=== PATIENT | female | born 1960 | race Caucasian/White ===

== ENCOUNTER → 2019-11-12 11:33 | Outpatient (BNVA) | payer MEDICARE, MEDICAID, SELFPAY | PROVIDERS: PCP Nurse Practitioner Family; Referring Provider Nurse Practitioner Family; Visit Provider Surgery | DX: Z76.89 Persons encountering health services in other specified circumstances (principal) | CPT/HCPCS: 99214 ==

== ENCOUNTER → 2020-01-21 08:27 | Outpatient (BNVA) | payer MEDICARE, MEDICAID, SELFPAY | PROVIDERS: PCP Nurse Practitioner Family; Visit Provider Surgery | DX: E66.3 Overweight (principal); Z68.27 Body mass index [BMI] 27.0-27.9, adult; Z71.3 Dietary counseling and surveillance | CPT/HCPCS: Q3014 ==

== ENCOUNTER 2020-01-26 10:24 | Outpatient (REF) | payer MEDICARE, MEDICAID, SELFPAY ==
[2020-01-26 10:56] LABS: MANUAL DIFF FLAG NO
[2020-01-26 10:57] LABS: Basophils Percent Auto 0.7 % (0-2); Eosinophils Absolute Auto 0.1 X10*3/uL (0.0-0.4); Eosinophils Percent Auto 1.8 % (0-4); Hematocrit 37.7 % (37-47); Hemoglobin 11.8 g/dl (12.0-16.0); Imm Gran Abs Auto 0.01 X10*3/uL (0.00-0.03); Imm Gran Pct Auto 0.2 % (0.0-0.4); Lymphocytes Absolute Auto 1.6 X10*3/uL (1.2-4.9); Lymphocytes Percent Auto 27.8 % (20-40); Mean Corpuscular HGB Conc 31.3 g/dl (31.0-35.0); Mean Corpuscular Hemoglobin 26.2 pg (27.0-33.0); Mean Corpuscular Volume 83.8 fL (80-98); Mean Platelet Volume 11.1 fL (9.4-12.3); Monocytes Absolute Auto 0.5 X10*3/uL (0.1-1.2); Monocytes Percent Auto 8.6 % (2-11); Neutrophils Absolute Auto 3.4 X10*3/uL (2.0-8.3); Neutrophils Percent Auto 60.9 % (45-73); Platelet Count 207 X10*3/uL (160-400); Red Cell Distribution Width 14.2 % (11.0-16.0); White Blood Count 5.6 X10*3/uL (4.8-10.8)
[2020-01-26 11:17] LABS: Estimated Average Glucose 108 mg/dL; Hemoglobin A1c % 5.4 %
[2020-01-26 11:29] LABS: Alanine Aminotransferase 13 U/L (0-31); Albumin Level 3.9 g/dL (3.5-5.0); Alkaline Phosphatase 77 U/L (39-117); Anion Gap 9 (12-20); Aspartate Amino Transferase 17 U/L (5-31); Bilirubin Total 0.4 mg/dL (0.0-1.0); Blood Urea Nitrogen 19 mg/dL (9-16); Calcium 9.4 mg/dL (8.4-10.2); Carbon Dioxide 33 mmol/L (22-29); Chloride 105 mmol/L (96-108); Cholesterol 197 mg/dL; Estimated Glomerular Filt Rate > 60; Glucose Random 90 mg/dL (60-115); HDL Cholesterol 66 mg/dL; LDL Cholesterol Calculated 114 mg/dl; Potassium 3.8 mmol/l (3.3-5.1); Sodium 143 mmol/L (135-145); Total Protein 6.3 g/dL (6.5-8.0); Triglycerides 87 mg/dL
[2020-01-26 11:39] LABS: Vitamin D 25-OH Total 28.1 ng/mL (>30)
[2020-01-28 09:16] LABS: Folate 10.5 ng/mL (> or = 4.0); Vitamin B12 662 pg/mL (200-900)
[2020-01-28 20:17] LABS: Insulin Level Total 4.1 uIU/mL
[2020-01-29 02:52] LABS: Zinc 77 mcg/dL (60-130)
[2020-01-29 12:07] LABS: Calcium (PTHI) 9.5 mg/dL (8.6-10.4); PTHI 69 pg/mL (14-64)
[2020-01-31 10:57] LABS: Vitamin B1 17 nmol/L (8-30)
[2020-01-31 15:39] LABS: Vitamin A 37 mcg/dL (38-98)
== END 2020-01-26 10:25 | disposition home or self-care (01) ==
LOC: HO.LAB 10:24
PROVIDERS: PCP Nurse Practitioner Family; Visit Provider Surgery
DX: K90.9 Intestinal malabsorption, unspecified (principal); E66.3 Overweight
CPT/HCPCS: 36415; 80053; 80061; 82306; 82607; 82746; 83036; 83525; 83970; 84425; 84590; 84630; 85025; 86140

== ENCOUNTER → 2020-02-25 08:10 | Outpatient (BNVA) | payer MEDICARE, MEDICAID, SELFPAY | PROVIDERS: PCP Nurse Practitioner Family; Visit Provider Physician Assistant | DX: K91.2 Postsurgical malabsorption, not elsewhere classified (principal); Z90.3 Acquired absence of stomach [part of] | CPT/HCPCS: Q3014 ==

== ENCOUNTER → 2020-03-03 08:15 | Outpatient (BNVA) | payer MEDICARE, MEDICAID, SELFPAY | PROVIDERS: PCP Nurse Practitioner Family; Visit Provider Dietitian, Registered ==

== ENCOUNTER → 2020-05-05 08:11 | Outpatient (BNVA) | payer MEDICARE, MEDICAID, SELFPAY | PROVIDERS: PCP Nurse Practitioner Family; Visit Provider Physician Assistant | DX: E66.3 Overweight (principal); K91.2 Postsurgical malabsorption, not elsewhere classified; Z90.3 Acquired absence of stomach [part of]; Z98.0 Intestinal bypass and anastomosis status | CPT/HCPCS: Q3014 ==

== ENCOUNTER → 2020-05-12 08:10 | Outpatient (BNVA) | payer MEDICARE, MEDICAID, SELFPAY | PROVIDERS: PCP Nurse Practitioner Family; Visit Provider Dietitian, Registered | DX: E66.3 Overweight (principal) | CPT/HCPCS: 97803 ==

== ENCOUNTER 2023-06-22 13:05 | Outpatient (REF) | payer OTHER, SELFPAY ==
[2023-06-22 16:12] LABS: MANUAL DIFF FLAG NO
[2023-06-22 16:18] LABS: Eosinophils Percent Auto 1.7 % (0-4); Hematocrit 39.4 % (37.0-47.0); Hemoglobin 12.8 g/dl (12.0-16.0); Imm Gran Pct Auto 0.3 % (0.0-0.4); Lymphocytes Percent Auto 25.5 % (20-40); Mean Corpuscular HGB Conc 32.5 g/dl (31.0-35.0); Mean Corpuscular Hemoglobin 30.5 pg (27.0-33.0); Mean Corpuscular Volume 93.8 fL (80.0-98.0); Mean Platelet Volume 11.6 fL (9.4-12.3); Monocytes Percent Auto 8.7 % (2-11); Platelet Count 228 X10*3/uL (160-400); Red Cell Distribution Width 13.9 % (11.0-16.0); White Blood Count 6.4 X10*3/uL (4.8-10.8)
[2023-06-22 16:19] LABS: Basophils Absolute Auto 0.1 X10*3/uL (0.0-0.2); Basophils Percent Auto 0.8 % (0-2); Eosinophils Absolute Auto 0.1 X10*3/uL (0.0-0.4); Imm Gran Abs Auto 0.02 X10*3/uL (0.00-0.03); Lymphocytes Absolute Auto 1.6 X10*3/uL (1.2-4.9); Monocytes Absolute Auto 0.6 X10*3/uL (0.1-1.2)
[2023-06-22 16:34] LABS: Alanine Aminotransferase 20 U/L (0-31); Albumin Level 3.9 g/dL (3.5-5.0); Alkaline Phosphatase 73 U/L (39-117); Anion Gap 13 (12-20); Aspartate Amino Transferase 22 U/L (5-31); Bilirubin Total 0.4 mg/dL (0.0-1.0); Blood Urea Nitrogen 18 mg/dL (9-16); Calcium 9.6 mg/dL (8.4-10.2); Carbon Dioxide 29 mmol/L (22-29); Chloride 103 mmol/L (96-108); Estimated Glomerular Filt Rate 59; Glucose Random 82 mg/dL (60-115); Potassium 3.6 mmol/L (3.3-5.1); Sodium 141 mmol/L (135-145); Total Protein 6.9 g/dL (6.5-8.0)
[2023-06-22 16:52] LABS: TSH reflex Free T4 1.79 uIU/mL (0.32-4.0); Vitamin D 25-OH Total 54.2 ng/mL (>30)
== END 2023-06-22 13:06 | disposition home or self-care (01) ==
LOC: HO.HHCL 13:05
PROVIDERS: Visit Provider Nurse Practitioner Family
DX: E03.8 Other specified hypothyroidism (principal); I10 Essential (primary) hypertension
CPT/HCPCS: 36415; 80053; 82306; 84443; 85025

== ENCOUNTER 2023-07-22 16:40 | Outpatient (REF) | payer OTHER, SELFPAY ==
[2023-07-27 20:44] LABS: HPV mRNA E6/E7 rflx Not Detected (Not Detected)
== END 2023-07-22 16:41 | disposition home or self-care (01) ==
LOC: HO.LNP 16:40
PROVIDERS: Visit Provider Nurse Practitioner Family
DX: Z12.4 Encounter for screening for malignant neoplasm of cervix (principal)
CPT/HCPCS: 87624; 88142

== ENCOUNTER 2025-01-11 11:52 | Outpatient (REF) | payer OTHER, SELFPAY ==
[2025-01-11 14:50] LABS: Alanine Aminotransferase 27 U/L (0-31); Albumin Level 4.0 g/dL (3.5-5.0); Alkaline Phosphatase 59 U/L (39-117); Anion Gap 8 (12-20); Aspartate Amino Transferase 27 U/L (5-31); Blood Urea Nitrogen 16 mg/dL (9-16); Calcium 9.4 mg/dL (8.4-10.2); Carbon Dioxide 31 mmol/L (22-29); Chloride 106 mmol/L (96-108); Cholesterol 180 mg/dL (<200); Estimated Glomerular Filt Rate > 60; HDL Cholesterol 64 mg/dL (>40); Lipase 31 U/L (8-78); Potassium 4.0 mmol/L (3.3-5.1); Sodium 141 mmol/L (135-145); Total Protein 6.3 g/dL (6.5-8.0); Triglycerides 89 mg/dL (<150)
[2025-01-11 16:43] LABS: Amylase 94 U/L (28-100)
== END 2025-01-11 11:53 | disposition home or self-care (01) ==
LOC: HO.HHCL 11:52
PROVIDERS: PCP Nurse Practitioner Family; Visit Provider Nurse Practitioner Family
DX: I10 Essential (primary) hypertension (principal); R10.84 Generalized abdominal pain
CPT/HCPCS: 36415; 80053; 80061; 82150; 83690